=== PATIENT | female | born 2000 | race Caucasian/White ===

== ENCOUNTER 2022-11-03 10:05 | Emergency (ER) | payer OTHER ==
[~2022-11-03] VITALS: Ht 160 cm; Wt 61.2 kg
[~2022-11-03 10:05] MED LIST: PRE-NATAL PO; ULTRAM50 M1 PO
[2022-11-03 10:56] VITALS: BP 135/87
[2022-11-03 11:13] LABS: URINE BILIRUBIN - DIPSTICK NEGATIVE (NEGATIVE); URINE BLOOD DIPSTICK LARGE (NEGATIVE); URINE COLOR YELLOW; URINE GLUCOSE - DIPSTICK NEGATIVE (NEGATIVE); URINE KETONE NEGATIVE (NEGATIVE); URINE LEUK ESTERASE TRACE (NEGATIVE); URINE PROTEIN - DIPSTICK NEGATIVE (NEG-TRACE); URINE SPECIFIC GRAVITY >=1.030
[2022-11-03 11:14] LABS: URINE NITRITE - DIPSTICK NEGATIVE (Negative)
[2022-11-03 11:15] LABS: URINE EPITHELIAL CELLS FEW EPI/hpf (0-FEW); URINE RBC 25-50 RBC/hpf (0-5); URINE WBC 0-2 WBC/hpf (0-5)
[2022-11-03] MEDS ORDERED: OMNI-PAC300 MG PO (11:22)
== END 2022-11-03 11:34 | disposition home or self-care (01) ==
LOC: ED 10:05
PROVIDERS: Family Medicine
DX: Z20.818 Contact with and (suspected) exposure to other bacterial communicable diseases (principal); R30.0 Dysuria; R31.9 Hematuria, unspecified

== ENCOUNTER 2022-11-24 14:00 | Emergency (ER) | payer OTHER ==
[~2022-11-24] VITALS: Ht 160 cm; Wt 59.9 kg
[~2022-11-24 14:00] MED LIST changes: +OMNI-PAC300 MG PO
[2022-11-24 15:05] LABS: URINE BILIRUBIN - DIPSTICK NEGATIVE (NEGATIVE); URINE BLOOD DIPSTICK MODERATE (NEGATIVE); URINE COLOR YELLOW; URINE GLUCOSE - DIPSTICK NEGATIVE (NEGATIVE); URINE KETONE NEGATIVE (NEGATIVE); URINE LEUK ESTERASE NEGATIVE (NEGATIVE); URINE PROTEIN - DIPSTICK NEGATIVE (NEG-TRACE); URINE UROBILINOGEN - DIPSTICK 0.2 E.U./dL (0.2)
[2022-11-24 15:06] LABS: URINE EPITHELIAL CELLS FEW EPI/hpf (0-FEW); URINE NITRITE - DIPSTICK NEGATIVE (Negative)
[2022-11-24 17:30] VITALS: BP 104/74
[2022-11-24 18:51] VITALS: BP 104/74
== END 2022-11-24 18:54 | disposition home or self-care (01) ==
LOC: ED 14:00
PROVIDERS: Nurse Practitioner Family
DX: M62.838 Other muscle spasm (principal)

== ENCOUNTER 2023-01-14 20:49 | Emergency (ER) | payer OTHER ==
[~2023-01-14] VITALS: Ht 162.6 cm; Wt 61.0 kg
[~2023-01-14 20:49] MED LIST changes: +AMOXICILLIN875 MG PO; +CIPRODEX1 ML AU; +CIPRODEX1 ML OT; +MEDDOSEPAK PO
[2023-01-14 22:15] VITALS: BP 127/85
[2023-01-14] MEDS ORDERED: DEPO-PROVER150 MG/ML IM (22:25)
[2023-01-14 22:30] VITALS: BP 118/76
[2023-01-14 22:45] VITALS: BP 106/73
[2023-01-14 22:50] LABS: URINE BILIRUBIN - DIPSTICK Negative (NEGATIVE); URINE BLOOD DIPSTICK Large (NEGATIVE); URINE GLUCOSE - DIPSTICK Negative (NEGATIVE); URINE KETONE Negative (NEGATIVE); URINE NITRITE - DIPSTICK Negative (Negative); URINE PH 6.5 (4.5-8.0); URINE PROTEIN - DIPSTICK 100 mg/dL (NEG-TRACE); URINE UROBILINOGEN - DIPSTICK 0.2 E.U./dL (0.2)
[2023-01-14 22:56] LABS: URINE COLOR Amber; URINE LEUK ESTERASE Small (NEGATIVE)
[2023-01-14 23:00] VITALS: BP 108/68
[2023-01-14 23:01] LABS: URINE RBC 25-50 RBC/hpf (0-5); URINE SQUAMOUS EPITHELIAL CELL FEW EPI/hpf (0-FEW)
[2023-01-14] MEDS ORDERED: BACTRIM DS1 TAB PO (23:11)
[2023-01-14] MEDS ORDERED: PYRIDIUM200 MG PO (23:14)
[2023-01-14 23:15] VITALS: BP 110/73
[2023-01-14 23:26] VITALS: BP 110/73
== END 2023-01-14 23:32 | disposition home or self-care (01) ==
LOC: ED 20:49
PROVIDERS: Emergency Medicine
DX: N39.0 Urinary tract infection, site not specified (principal); B95.7 Other staphylococcus as the cause of diseases classified elsewhere

== ENCOUNTER 2023-06-25 11:06 | Emergency (ER) | payer OTHER ==
[~2023-06-25] VITALS: Ht 160 cm; Wt 69.0 kg
[2023-06-25] VITALS (8 sets, daily range): BP systolic 104–128; BP diastolic 71–80
[~2023-06-25 11:06] MED LIST changes: +BACTRIM DS1 TAB PO; +DEPO-PROVER150 MG/ML IM; +PYRIDIUM200 MG PO
[2023-06-25] MEDS ORDERED: [UNRECOGNIZED DRUG - OTHER] MT (12:35)
[2023-06-25] MEDS ORDERED: [UNRECOGNIZED DRUG - OTHER] TOP (12:35)
== END 2023-06-25 13:01 | disposition home or self-care (01) ==
LOC: ED 11:06
DX: B00.1 Herpesviral vesicular dermatitis (principal); J45.909 Unspecified asthma, uncomplicated

== ENCOUNTER 2023-06-27 11:42 | Emergency (ER) | payer OTHER ==
[~2023-06-27] VITALS: Ht 160 cm; Wt 61.2 kg
[~2023-06-27 11:42] MED LIST changes: +[UNRECOGNIZED DRUG - OTHER] MT; +[UNRECOGNIZED DRUG - OTHER] TOP
[2023-06-27 12:41] VITALS: BP 12/77
== END 2023-06-27 12:57 | disposition home or self-care (01) ==
LOC: ED 11:42
DX: B08.4 Enteroviral vesicular stomatitis with exanthem (principal)

== ENCOUNTER 2023-11-21 20:45 | Emergency (ER) | payer OTHER ==
[~2023-11-21] VITALS: Ht 160 cm; Wt 68.0 kg
[~2023-11-21 20:45] MED LIST changes: +LEVSIN0.125 M1 PO; +PROTONIX40 M2 PO
[2023-11-21] MEDS ORDERED: traMADol HCL 50 MG/TAB PO ONE (21:20)
[2023-11-21] MEDS ORDERED: CLINDAMYCIN HCL 150 MG CAP PO ONE (21:20)
[2023-11-21] MEDS ORDERED: NAPROXEN 250 MG/TAB PO ONE (21:20)
[2023-11-21] MEDS ORDERED: ACETAMINOPHEN 500 MG TAB PO ONE (21:20)
[2023-11-21] MEDS ORDERED: CLINDAMYCIN300 M1 PO (21:22)
[2023-11-21] MEDS ORDERED: NAPROXEN375 MG PO (21:22)
[2023-11-21 21:29] VITALS: BP 119/77
== END 2023-11-21 21:41 | disposition home or self-care (01) ==
LOC: ED 20:45
DX: K04.7 Periapical abscess without sinus (principal); K01.1 Impacted teeth

== ENCOUNTER 2024-01-14 07:15 | Emergency (ER) | payer OTHER ==
[~2024-01-14] VITALS: Ht 160 cm; Wt 68.0 kg
[~2024-01-14 07:15] MED LIST changes: +CLINDAMYCIN300 M1 PO; +NAPROXEN375 MG PO
[2024-01-14 07:28] VITALS: BP 114/82
[2024-01-14 07:30] VITALS: BP 130/77
[2024-01-14] MEDS ORDERED: METHOCARBAMOL 500 MG/TAB PO ONE (07:50)
[2024-01-14] MEDS ORDERED: FLEXERIL5 M1 PO (07:50)
[2024-01-14] MEDS ORDERED: MOTRIN400 MG/TAB PO (07:50)
[2024-01-14] MEDS ORDERED: KETOROLAC TROMETHAMINE 30 MG/ML SDV IM ONE (07:50)
[2024-01-14 08:00] VITALS: BP 105/69
[2024-01-14 08:22] VITALS: BP 106/76
[2024-01-14 08:24] VITALS: BP 106/76
== END 2024-01-14 08:25 | disposition home or self-care (01) ==
LOC: ED 07:15
DX: M54.2 Cervicalgia (principal)